=== PATIENT | female | born 2000 | race Caucasian/White ===

== ENCOUNTER 2021-07-13 20:43 | Emergency (ER) | payer OTHER ==
[~2021-07-13] VITALS: Ht 154.9 cm; Wt 61.0 kg
[2021-07-13 21:29] VITALS: BP 121/76
--- NOTE | 2021-07-13 22:57 | NUR ---
PT ASSESSMENT COMPLETED BY TAY. NO NURSING INTERVENTIONS REQUIRED AT THIS TIME.
[2021-07-13] MEDS ORDERED: FLONAS NS (23:11)
[2021-07-13] MEDS ORDERED: DESL1T12 PO (23:11)
[2021-07-13] MEDS ORDERED: AMOX1TAB7 PO (23:11)
[2021-07-13 23:27] VITALS: BP 121/76
--- NOTE | 2021-07-13 23:27 | NUR ---
Patient discharged with v/s stable. Written and verbal after care instructions given and explained. Patient alert, oriented and verbalized understanding of instructions. Ambulatory with steady gait. All questions addressed prior to discharge. ID band removed. Patient advised to follow up with PMD. Rx of AMOX-CLAV, CLARINEX, FLONAE NASAL given. Patient educated on indication of medication including possible reaction and side effects. Opportunity to ask questions provided and answered.
== END 2021-07-13 23:27 | disposition home or self-care (01) ==
LOC: MED 20:43
DX: J01.90 Acute sinusitis, unspecified (principal); R59.0 Localized enlarged lymph nodes; Z79.899 Other long term (current) drug therapy; Z79.2 Long term (current) use of antibiotics
CPT/HCPCS: 99283